=== PATIENT | male | born 1955 | race Caucasian/White ===

== ENCOUNTER → 2018-08-19 | Outpatient (CLI) | payer MEDICARE ==
[~2018-08-19] MED LIST: CARV12.511 PO; CLON0.2T PO; DOCU-109 PO; FENO160T PO; FISH1CAP PO; LOSA100T14 PO; MELO15TA6 PO; METH750T2 PO; OXYC1TAB15 PO; TRAZ-118 PO; VERA240C2 PO
== END | disposition home or self-care (01) ==
LOC: SURGPAT 10:03
PROVIDERS: ATTEND Neurological Surgery
DX: M48.062 Spinal stenosis, lumbar region with neurogenic claudication (principal); E88.2 Lipomatosis, not elsewhere classified
CPT/HCPCS: 36415; 87641

== ENCOUNTER 2018-08-22 09:27 | Observation (INO) | payer MEDICARE ==
--- NOTE | 2018-08-21 15:20 | PREOP HP ---
DATE OF SERVICE: 08/22/2018 HISTORY OF PRESENT ILLNESS: The patient is a pleasant 63-year-old who is having difficulty with low back pain and right hip pain. He said the problem with his back pain has been severe over the last couple of years. Standing and walking increase his pain and discomfort. He says that the longer he stands, the more his back as painful as well as the hip pain. His right leg can have feelings of weakness that seem increased. He says that occasionally, he can fall because of right leg weakness, which can occur rather abruptly. He finds that he must stand and sit frequently throughout the day. 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 He rates his pain as an 8/10 when it is severe. He takes gabapentin. He has been diagnosed with peripheral neuropathy. He has seen a chiropractor. He received 3 epidural steroid injections, most recently on 06/05/2018. They were not helpful. He has had physical therapy in the past, but not recently. He does not notice numbness in his lower extremities. PAST MEDICAL HISTORY: Artificial joint head or neck injury, hypertension, neuropathy. PAST SURGICAL HISTORY: Carpal tunnel release 2009, ear surgery 2011, left toe amputation 2013, right foot surgery 2015. FAMILY HISTORY: Cancer and hypertension. ALLERGIES: No known drug allergies. CURRENT MEDICATIONS: Trazodone, gabapentin, carvedilol, verapamil, meloxicam, fenofibrate, losartan, clonidine, omega 3. SOCIAL HISTORY: Retired. . Drinks alcohol 1-2 times per week. Smokes 1 pack per day and has for 40 years. Denies substance abuse. REVIEW OF SYSTEMS: A 12-point review of systems was obtained and is noncontributory except for that mentioned above. PHYSICAL EXAMINATION: NEUROSURGERY EXAMINATION: GENERAL APPEARANCE: Alert, pleasant, in no acute distress. HEAD: Normocephalic and atraumatic. SKIN: Warm and dry. MUSCULOSKELETAL: Lumbar paraspinal muscle bulk is normal, restricted range of motion of the lumbar spine, [id number] tenderness of lumbar spine with palpation, normal range of motion of the lower extremities bilaterally. EXTREMITIES: No clubbing, cyanosis or edema. NEUROLOGIC: Alert and oriented x 3, normal recent and remote memory, strength 5/5 in bilateral lower extremities except for a sensory was intact to light touch in bilateral lower extremities, reflexes were present and symmetric in the lower extremities bilaterally, negative straight leg raising bilaterally, normal gait. IMAGING: I reviewed a lumbar MRI scan. On that study, there is moderately severe degenerative disk disease throughout the lumbar spine, which is associated with an element of spinal stenosis. In addition, he has severe epidural lipomatosis, which in conjunction with degenerative changes is associated with severe lumbar spinal stenosis, which extends from L2 to S1. There is also a mild spondylolisthesis of L5 on S1. ASSESSMENT AND PLAN: Severe epidural lipomatosis and severe lumbar spinal stenosis from L2 through S1. The solution for this problem would be a laminectomy extending from L3 through S1. I did speak with him about this. I discussed the surgery and the risks. I outlined treatment options. He would like to go ahead. We will make the arrangements. JOÃO KIM MD DR: MARK/norma JOB#: [id number] / [id number] ESTEFANI
[~2018-08-22] VITALS: Ht 198.1 cm; Wt 113.4 kg
[2018-08-22] VITALS (8 sets, daily range): BP systolic 133–161; BP diastolic 80–90
[~2018-08-22 09:27] MED LIST changes: +BACITRACIN 50,000 UNIT in IV NORMAL SALINE 1000ML BAG 1,000 ML IRR ONE; +BUPIVAC MPF-EPI 0.5%-1:200000 30 ML VIAL. ONE; -CARV12.511 PO; -DOCU-109 PO; +GELATIN SPONGE SIZE 100. ONE; +HYDROmorphone 2 MG/ML VIAL IV PRN; +KETOROLAC 60 MG/2 ML INJ FOR OR. ONE; -METH750T2 PO; +MORPHINE SULFATE 2 MG/ML VIAL. IV PRN; +ONDANSETRON PF 4 MG/2 ML VIAL. IV PRN; -OXYC1TAB15 PO; +PROCHLORPERAZINE 10 MG/2 ML VIAL. IV PRN; +THROMBIN TOPICAL 20,000 UNIT SPRAY.SYRN KIT TP ONE; +ceFAZolin 2GM PREMIX 2 GM/50 ML BAG IV ONE; +fentaNYL PF VIAL 100 MCG/2 ML VIAL IV PRN
[2018-08-22] MEDS ORDERED: ROCURONIUM 50 MG/5 ML VIAL. ONE (10:20)
[2018-08-22] MEDS ORDERED: REMIFENTANIL 2 MG VIAL. IV ONE ×2 (10:20→12:59)
[2018-08-22] MEDS ORDERED: GLYCOPYRROLATE 1 MG/5 ML VIAL. ONE (10:20)
[2018-08-22] MEDS ORDERED: MIDAZOLAM HCL/PF 2 MG/2 ML VIAL. ONE (10:20)
[2018-08-22] MEDS ORDERED: LIDOCAINE 2% PF 5 ML VIAL. ONE (10:21)
[2018-08-22] MEDS ORDERED: ONDANSETRON PF 4 MG/2 ML VIAL. ONE (10:21)
[2018-08-22] MEDS ORDERED: DESFLURANE > 120 MINUTES IH ONE (10:21)
[2018-08-22] MEDS ORDERED: PROPOFOL 50 ML IV ONE ×3 (10:21→12:59)
[2018-08-22] MEDS ORDERED: DEXAMETHASONE SOD PHOS 20 MG/5 ML VIAL. ONE (10:21)
[2018-08-22] MEDS ORDERED: PHENYLEPHRINE 10 MG/ML VIAL. ONE (10:21)
[2018-08-22] MEDS ORDERED: PROPOFOL 20 ML IV ONE (10:21)
[2018-08-22] MEDS: IV RINGERS,LACTATED 1000ML 1,000 ML IV SCH ×2 (10:22→15:50)
[2018-08-22] MEDS ORDERED: CARV12.511 PO (10:25)
[2018-08-22] MEDS ORDERED: 0.9 % SODIUM CHLORIDE 20 ML VIAL. IJ ONE ×2 (13:00)
[2018-08-22] MEDS ORDERED: fentaNYL PF VIAL 100 MCG/2 ML VIAL ONE ×2 (14:57→15:35)
[2018-08-22] MEDS ORDERED: ALBUTEROL SULFATE 2.5 MG/3 ML NEBU. ONE (15:35)
[2018-08-22] MEDS: fentaNYL PF VIAL 100 MCG/2 ML VIAL IV PRN ×3 (15:43→16:10)
[2018-08-22] MEDS ORDERED: ALBUTEROL SULFATE 2.5 MG/3 ML NEBU. NEB PRN (15:45)
[2018-08-22] MEDS ORDERED: NALOXONE 0.4 MG/ML VIAL. IV PRN (17:15)
[2018-08-22] MEDS ORDERED: MAG HYDROX/ALUMINUM HYD/SIMETH 30 ML ORAL.SUSP PO PRN (17:15)
[2018-08-22] MEDS ORDERED: diphenhydrAMINE HCL 25 MG CAPSULE PO PRN (17:15)
[2018-08-22] MEDS ORDERED: oxyCODONE/APAP 5/325 1 TAB TABLET PO PRN (17:15)
[2018-08-22] MEDS ORDERED: ACETAMINOPHEN 325 MG TABLET. PO PRN (17:15)
[2018-08-22] MEDS ORDERED: 0.9 % SODIUM CHLORIDE 10 ML DISP.SYRIN. IV PRN (17:15)
[2018-08-22] MEDS ORDERED: MAGNESIUM HYDROXIDE 2,400 MG/30 ML ORAL.SUSP. PO PRN (17:15)
[2018-08-22] MEDS ORDERED: fentaNYL PF VIAL 100 MCG/2 ML VIAL IV PRN (17:15)
[2018-08-22] MEDS ORDERED: ZOLPIDEM 5 MG TABLET. PO PRN (17:15)
[2018-08-22] MEDS ORDERED: CALCIUM CARBONATE 500 MG TAB.CHEW PO PRN (17:15)
[2018-08-22] MEDS ORDERED: ONDANSETRON PF 4 MG/2 ML VIAL. IV PRN (17:15)
--- NOTE | 2018-08-22 17:15 | NUR ---
Patient arrived on the floor from PACU in a bed around 1705. at bedside. IV in left hand has fluids infusing. Oxygen per nasal cannula at 3L. ANNELIESE's on BLE. Pulses +2 in all extremities but he does state his feet have constant numbness/tingling present. Patient angry/anxious with the fact he is staying the night at the hospital. States he is uncomfortable and ready to go home. agitated but able to convince patient its for his best interest. Patients left eye is red, itching, burning, and very uncomfortable. Eye assessed with nothing present inside it. Eye was washed out with normal saline per /patients request which seemed to help. Dressing on lower back is intact with a small amount of bloody drainage present on the dressing. Patient states he is uncomfortable and wants to sit in the recliner. Call light within reach. Will continue to monitor.
[2018-08-22] MEDS: POTASSIUM CL 20MEQ D5-0.45NACL 1,000 ML IV SCH (18:00)
[2018-08-22] MEDS: oxyCODONE/APAP 5/325 1 TAB TABLET PO PRN (19:07)
[2018-08-22] MEDS ORDERED: traZODone 50 MG TABLET. PO SCH (21:00)
[2018-08-22] MEDS: METHOCARBAMOL 750 MG TABLET PO SCH (21:02)
[2018-08-22] MEDS: DOCUSATE SODIUM 100 MG CAPSULE. PO SCH (21:02)
[2018-08-22] MEDS: cloNIDine HCL 0.2 MG TABLET PO SCH (21:03)
[2018-08-23 03:00] VITALS: BP 134/85
[2018-08-23] MEDS: oxyCODONE/APAP 5/325 1 TAB TABLET PO PRN ×2 (05:48→10:03)
[2018-08-23 06:44] VITALS: BP 153/85
[2018-08-23] MEDS: POTASSIUM CL 20MEQ D5-0.45NACL 1,000 ML IV SCH (07:20)
[2018-08-23] MEDS: METHOCARBAMOL 750 MG TABLET PO SCH (07:59)
[2018-08-23 08:00] VITALS: BP 144/89
[2018-08-23] MEDS ORDERED: CARVEDILOL 12.5 MG TABLET. PO SCH (08:00)
[2018-08-23] MEDS: cloNIDine HCL 0.2 MG TABLET PO SCH (08:01)
[2018-08-23 08:02] VITALS: BP 144/89
[2018-08-23] MEDS: DOCUSATE SODIUM 100 MG CAPSULE. PO SCH (08:04)
[2018-08-23] MEDS ORDERED: FENOFIBRATE,MICRONIZED 134 MG CAPSULE PO SCH (09:00)
[2018-08-23] MEDS ORDERED: MELOXICAM 7.5 MG TABLET PO SCH (09:00)
[2018-08-23] MEDS ORDERED: LOSARTAN POTASSIUM 50 MG TABLET. PO SCH (09:00)
[2018-08-23] MEDS ORDERED: VERAPAMIL SR 180 MG TABLET.ER. PO SCH (09:00)
--- NOTE | 2018-08-23 09:42 | DISCH ---
DISCHARGE INSTRUCTIONS Condition on Discharge Condition on Discharge: Stable Activity After Discharge Activity Instructions for Disc: Activity as tolerated, Avoid exertion Bathing Instructions: Shower-keep dressing dry Lifting Instructions after Dis: No heavy lifting, No pulling or pushing, Do not lift >10 pounds Diet after Discharge Additional Diet Restrictions: resume home diet Wound Incision Care Wound/Incision Care: Ice to area for comfort Other wound/incision instructi: may remove dressing in 48 hrs if dry then may shower, no soaking Wound Care Equipment: Sutures/kelly Contacting the after DC Call your doctor for: Concerns you may have Follow-Up Follow up with: Dr. Kim's nurse in 2 weeks [phone] JOÃO KIM MD Aug 23, 2018 09:42
[2018-08-23] MEDS ORDERED: OXYC1TAB15 PO (09:44)
[2018-08-23] MEDS ORDERED: METH750T2 PO (09:44)
[2018-08-23] MEDS ORDERED: DOCU-109 PO (09:44)
--- NOTE | 2018-08-23 10:35 | NUR ---
Discharge instructions given with prescriptions. Answered questions and concerns. Both pt and spouse verbalized understanding. Extra supplies given for dressing changes. Explain and demonstrated how to clean and apply dressing. Pt discharge home accompanied by spouse.
--- NOTE | 2018-08-26 15:06 | PATHOLOGY ---
[facility] Accession Number: [id number] . 01 Material submitted: . LUMBAR DECOMPRESSION . 01 Clinical history: . Lumbar stenosis with neurogenic claudication, epidural lipomatosis . 02 Diagnosis: Segments of fibrocartilaginous, adipose, and skeletal muscle tissue and bone, lumbar decompression: - Degenerative changes of fibrocartilaginous tissue. LBQ/08/26/2018 . 02 Comment: There is no evidence of an acute inflammatory process or malignancy. (JPM/db; 08/26/2018) . 02 Electronically signed: . Antonio West MD, Pathologist NPI- [id number] . 01 Gross description: . The specimen is received in formalin, labeled "Roshan Alvares, lumbar decompression", is a segment of bone covered with gleason-white tissue and diffusely covered by cautery artifacts, measuring 10.6 cm in length and up to 4.2 cm in width with an average 0.5 cm thickness. Also received within the container are multiple irregular fragments of gleason-white, fibrous tissue, bone and yellow adipose tissue measuring 4.7 x 4.0 x 2.0 cm in aggregate. Roofer Helper Vinyl Coating tissue is submitted in A1-A2, after decalcification. (A2 = largest segment) (SWS; 08/23/2018) SHS/SHS . 02 Pathologist provided ICD-10: M51.36 . 02 CPT . 300830, [id number] Specimen Comment: A courtesy copy of this report has been sent to Specimen Comment: [phone], . Specimen Comment: Report sent to / DR EDUARDO Performed at: [address], [place] [id number] MD Darnell Burnham MD Phone: [phone] Performed at: [address] [id number] MD Antonio West MD Phone: [phone]
--- NOTE | 2018-08-26 18:07 | OP ---
DATE OF SURGERY: 08/22/2018 PREOPERATIVE DIAGNOSES: Severe lumbar spinal stenosis, L2, L3, L4, L5 and S1 from hypertrophic facet as well as severe epidural lipomatosis. POSTOPERATIVE DIAGNOSES: Severe lumbar spinal stenosis, L2, L3, L4, L5 and S1 from hypertrophic facet as well as severe epidural lipomatosis. OPERATION PERFORMED: Total laminectomy, L2, L3, L4, L5 and partial S1 with decompression of dura and nerve root and removal of epidural lipomatosis. During operation I also used EMG monitoring, SSEP monitoring, fluoroscopy, microscopic dissection. SURGEON: Garland Kim M.D. TWO WAY RADIO INSTALLER: FILIPPO Grullon, assisted with the surgery. She assisted with the opening and laminectomy. OPERATIVE INDICATIONS: The patient is a pleasant 63-year-old man who developed intractable back pain, which could radiate into the right hip. The pattern of pain was a neurogenic claudication type pattern and on imaging studies, he had severe epidural lipomatosis with severe lumbar spinal stenosis. He had had epidural steroid injections as well as seeing a chiropractor as well as physical therapy in the past and these have not helped him. I recommended laminectomy to deal with the epidural lipomatosis and decompress the dura and nerve root. He understood and wished to go ahead. DESCRIPTION OF PROCEDURE: Following general endotracheal anesthesia, the patient was positioned prone on the Regan table. Lumbar region prepped and draped in standard fashion. AGUSTÍN hose and AV impulse boots were applied for DVT prophylaxis. The microscope was draped. Fluoroscopy was draped and brought into the field. Monitoring was established. Ancef 2 grams was given less than 1 hour prior to initiation of the surgery. Using fluoroscopic guidance, an incision was made from L2 through S1. I dissected down through skin and subcutaneous tissue, reflected the paraspinal muscles and placed self-retaining retractors. I then brought in the high speed air drill with a conical bur and created a trough on each side extending from L3 through S1. I then used the foot plate on the high speed air drill and cut a groove first on the left side and then on the right side extending from L2-L5 and lifted off the lamina after trimming and freeing up the ligamentum flavum. I then began to carefully remove the very abundant amount of epidural fat and as I worked, the region became very well decompressed. I used Nahid to perform partial S1 laminectomy and working inferiorly was able to remove a good deal of fat from this location as well as behind the lamina of L1. I also removed fatty material and fully decompressed the dura throughout. Following this, then I explored carefully. I felt that I had an excellent decompression. I irrigated copiously, removed the self-retaining retractors, obtained hemostasis in the muscle and then I closed the wounds in layers with absorbable suture and skin was closed with skin kelly. The operation went very well and the patient awakened uneventfully with normal strength in his lower extremities. I was quite pleased with the surgery. GARLAND KIM MD DR: MARK/norma JOB#: [id number] / [id number] ESTEFANI
== END 2018-08-23 10:35 | disposition still patient (30) ==
LOC: SURG 09:27 → EDUNIT# 10:30 → 4 SOUTHEST 17:53
PROVIDERS: ADMIT Neurological Surgery; ATTEND Neurological Surgery
DX: M48.061 Spinal stenosis, lumbar region without neurogenic claudication (principal); G62.9 Polyneuropathy, unspecified; I10 Essential (primary) hypertension; Z89.422 Acquired absence of other left toe(s); Z82.49 Family history of ischemic heart disease and other diseases of the circulatory system; R53.1 Weakness; E88.2 Lipomatosis, not elsewhere classified; Z87.891 Personal history of nicotine dependence
CPT/HCPCS: 63047; 63048; 76000; 94640; 96374; 97162; 97530; A7015; G0378; G0379; G8978; G8979; G8980; J0696; J1100; J1885; J2001; J2250; J2405; J2704; J3010; J3490; J7030; J7613